=== PATIENT | male | born 1970 | race Caucasian/White ===

== ENCOUNTER 2018-01-15 13:55 | Inpatient (IN) | payer OTHER ==
[~2018-01-15] VITALS: Ht 177.8 cm; Wt 83.0 kg
[2018-01-15 14:01] VITALS: BP 150/92
--- NOTE | 2018-01-15 14:05 | NUR ---
Pt ambulated to bed 9. Accompanied by .
--- NOTE | 2018-01-15 14:11 | NUR ---
47 YO M BIB W/ C/O ETOH WITHDRAWAL. PT REPORTS HE HAS BEEN DRINKING 750ML OF VODKA A DAY ALONG WITH BEERS, FOR THE PAST 10-14 YEARS. PT REPORTS THE DRINKING HAS BECOME WORSE AND HE WANTS TO STOP. HIS LAST DRINK WAS YESTERDAY AFTERNOON, BUT HE IS CONCERNED ABOUT THE SYMPTOMS AND TREMORS THAT HE IS HAVING R/T ALCOHOL WITHDRAWL. PT DENIES HX OF SEIZURES, BUT SEIZURE PRECAUTIONS INITIATED AT THIS TIME. PT REPORT N/V/D/ AND INTERMITTENT PERIODS OF FEELING "FEVERISH". HE REPORTS DIZZINESS AND "LIGHT-HEADEDNESS". AAOX4. GCS 15. CMS INTACT. RR EVEN AND UNLABORED. LUNGS BILATERALLY CLEAR. PT PRESENTS WITH TREMORS OF THE HANDS AND ARMS, WITH SLOW MOVEMENTS. ER MD MENJIVAR NOTIFIED. PT NEEDS MET. SAFETY PRECAUTIONS IN PLACE. WILL CONTINUE TO MONITOR.
[2018-01-15] MEDS ORDERED: ONDANSETRON 4 MG/2 ML VIAL IVP ONE (14:55)
[2018-01-15] MEDS ORDERED: LORazepam 1 MG TAB PO ONE ×2 (14:55→18:00)
[2018-01-15] MEDS ORDERED: MULTIVITAMIN-12 10 ML, THIAMINE 100 MG, MAGNESIUM SULFATE 50% 2,000 MG, FOLIC ACID 5 MG... IV ONE ×5 (14:55)
[2018-01-15] MEDS ORDERED: NACL 0.9% 1,000 ML IV ONE (15:10)
--- NOTE | 2018-01-15 15:10 | NUR ---
PT RESTING COMFORTABLY IN [facility] AT THIS TIME. VSS. SAFETY AND SEIZURE PRECAUTIONS IN PLACE. WILL CONTINUE TO MONITOR.
[2018-01-15] MEDS ORDERED: MULTIVITAMIN-12 10 ML, THIAMINE 100 MG, MAGNESIUM SULFATE 50% 2,000 MG, FOLIC ACID 5 MG... IV SCH ×5 (15:17)
[2018-01-15 15:21] LABS: BASOPHILS % (AUTO) 0.1 % (0.0-2.0); HEMATOCRIT 46.1 % (36-52); HEMOGLOBIN 15.2 g/dL (12.0-18.0); LYMPHOCYTES # (AUTO) 0.2 K/uL (2.0-11.5); LYMPHOCYTES % (AUTO) 3.9 % (20.5-51.1); MEAN CORPUSCULAR HEMOGLOBIN 30 pg (27-31); MEAN CORPUSCULAR HGB CONC 33 g/dL (33-37); MEAN CORPUSCULAR VOLUME 89.3 fL (80-94); MONOCYTES # (AUTO) 0.4 K/uL (0.8-1.0); MONOCYTES % (AUTO) 8.4 % (1.7-9.3); NEUTROPHILS # (AUTO) 3.8 K/uL (1.8-7.7); NEUTROPHILS % (AUTO) 87.6 % (42.2-75.2); PLATELET COUNT (AUTO) 180 K/uL (140-450); RED BLOOD CELL COUNT(AUTO) 5.16 MIL/uL (4.20-6.10); RED CELL DISTRIBUTION WIDTH 17.7 % (11.6-13.7); WHITE BLOOD COUNT (AUTO) 4.4 K/uL (4.8-10.8)
--- NOTE | 2018-01-15 16:15 | NUR ---
Pt asleep in [facility] at this time. vss. safety and seizure precautions in place, rr even and unlabored, lungs clear. will continue to monitor.
[2018-01-15 17:05] LABS: APPEARANCE,URINE SL CLOUDY (CLEAR); BILIRUBIN,URINE 1+ (NEGATIVE); BLOOD, URINE NEGATIVE (NEGATIVE); COLOR,URINE ORANGE (YELLOW); LEUKOCYTE ESTERASE ,URINE NEGATIVE (NEGATIVE); NITRITE, URINE NEGATIVE (NEGATIVE); UGLUCOSE NEGATIVE (NEGATIVE)
[2018-01-15] MEDS: NACL 0.9% 1,000 ML IV ONE ×2 (17:08→17:41)
[2018-01-15 17:20] LABS: RBC,URINE 3-10 (FEW) /HPF (0-5)
[2018-01-15 17:21] LABS: WBC,URINE 0-5 (RARE) /HPF (0-5)
[2018-01-15] MEDS ORDERED: MAGNESIUM SULFATE 50% 1,000 MG in NACL 0.9% 50 ML IV ONE (17:25)
[2018-01-15 17:32] LABS: ANION GAP 20.3 (8-16); CARBON DIOXIDE 26.6 mmol/L (21-32); CREATININE 0.9 mg/dL (0.7-1.3); POTASSIUM 3.9 mmol/L (3.5-5.1)
--- NOTE | 2018-01-15 17:37 | NUR ---
pt finishing up banana bag at this time. Pt tremors have reduced significantly. pt states that he is feeling much better. vss. safety and seizure precautions in place. will continue to monitor.
[2018-01-15 17:38] LABS: ALBUMIN 4.8 g/dL (3.4-5.0); TOTAL BILIRUBIN 1.3 mg/dL (0.0-1.0)
[2018-01-15] MEDS ORDERED: MAG SULF 2000 MG/WATER PREMIX 50 ML IV ONE (17:55)
--- NOTE | 2018-01-15 18:17 | NUR ---
Pt resting on [facility] at this time. vss. safety precautions in place. will continue to monitor.
--- NOTE | 2018-01-15 19:28 | NUR ---
PT RESTING COMFORTABLY IN [facility] AT THIS TIME. VSS. RR EVEN AND UNLABORED. LUNGS BILATERALLY CLEAR. PT NEEDS MET. SAFETY PRECAUTIONS IN PLACE. WILL CONTINUE TO MONITOR.
--- NOTE | 2018-01-15 19:29 | NUR ---
transfer of care at this time, report given to RAQUEL Ewing
--- NOTE | 2018-01-15 19:35 | NUR ---
Pt report given to STEPHEN GARCÍA. Transfer of care at this time.
--- NOTE | 2018-01-15 19:45 | NUR ---
ADMITTED THIS 47 YEAR OLD MALE FROM ER PER BRIAN WITH CC OF ALCOHOL WITHDRAWAL, AMBULATED TO BED WITH STEADY GAIT, ASSESSMENT DONE, VITAL SIGNS STABLE, PT CALM AND COOPERATIVE, SLIGHT HAND TREMORS NOTED, ORIENTED TO ROOM AND CALL LIGHT, MAG-RIDER FROM ER INFUSING WELL, ON REGULAR DIET, WILL PROVIDE FOOD, CALL LIGHT WITHIN REACH.
[2018-01-15 20:00] VITALS: BP 145/77
[2018-01-15] MEDS ORDERED: ACETAMINOPHEN 325 MG TAB PO PRN ×2 (21:10→21:50)
[2018-01-15] MEDS: LORazepam 2 MG/ML VIAL IVP PRN (21:38)
--- NOTE | 2018-01-15 21:40 | NUR ---
NOTED RESTLESS, PT STATED ANXIOUS AT THIS TIME, HAND TREMORS NOTED, PAGED DR Corinne TURCIOS, WITH NEW ORDER, MEDICATED WITH ATIVAN IVP PRN, MONITORED CLOSELY, AT BEDSIDE.
[2018-01-15] MEDS ORDERED: HYDROcodone/APAP 5/325 MG 1 TAB TAB PO PRN (21:50)
[2018-01-15] MEDS ORDERED: ONDANSETRON 4 MG/2 ML VIAL IVP PRN (21:50)
[2018-01-15] MEDS: DEXT 5% /NACL 0.9% 1,000 ML IV SCH (23:58)
[2018-01-16] VITALS: BP 136/87
--- NOTE | 2018-01-16 | NUR ---
PT STILL AWAKE USING HIS CELLPHONE, STATED HASN'T SLEEP SINCE WEDNESDAY, REQUESTING FOR SLEEPING PILL, WILL PAGED DR Corinne TURCIOS, VITAL SIGNS STABLE, IVF OF D5NS AT 100ML/H STARTED, CONTINUE TO MONITOR CLOSELY.
[2018-01-16] MEDS ORDERED: traZODone 50 MG TAB PO SCH ×2 (01:00→21:00)
[2018-01-16] MEDS: LORazepam 2 MG/ML VIAL IVP PRN ×4 (01:27→23:51)
--- NOTE | 2018-01-16 01:35 | NUR ---
PT STILL AWAKE, STATED FEELING ANXIOUS, HAND TREMORS NOTED, MEDICATED WITH TRAZODONE FOR SLEEP AND ATIVAN IVP FOR RESTLESSNESS, IVF INFUSING WELL, ENCOURAGE TO GET SOME SLEEP, MONITORED CLOSELY.
[2018-01-16] MEDS: LORazepam 1 MG TAB PO SCH ×3 (04:20→20:33)
--- NOTE | 2018-01-16 04:20 | NUR ---
PT SLEEPING, EASILY AROUSABLE BUT DISORIENTED, REORIENT PT TO TIME AND PLACE, PT CALMED DOWN, VITAL SIGNS STABLE, AMBULATED TO BR WITH STEADY GAIT AND VOIDED FREELY, DUE PO ATIVAN ADMINISTERED, MONITORED CLOSELY.
[2018-01-16 04:30] VITALS: BP 130/82
[2018-01-16 05:43] LABS: BASOPHILS % (AUTO) 0.3 % (0.0-2.0); EOSINOPHILS % (AUTO) 0.9 % (0.0-4.0); HEMATOCRIT 40.8 % (36-52); HEMOGLOBIN 13.5 g/dL (12.0-18.0); LYMPHOCYTES # (AUTO) 0.6 K/uL (2.0-11.5); LYMPHOCYTES % (AUTO) 18.2 % (20.5-51.1); MEAN CORPUSCULAR HEMOGLOBIN 30 pg (27-31); MEAN CORPUSCULAR HGB CONC 33 g/dL (33-37); MEAN CORPUSCULAR VOLUME 90.3 fL (80-94); MONOCYTES # (AUTO) 0.6 K/uL (0.8-1.0); MONOCYTES % (AUTO) 17.1 % (1.7-9.3); NEUTROPHILS # (AUTO) 2.1 K/uL (1.8-7.7); NEUTROPHILS % (AUTO) 63.5 % (42.2-75.2); PLATELET COUNT (AUTO) 123 K/uL (140-450); RED BLOOD CELL COUNT(AUTO) 4.51 MIL/uL (4.20-6.10); RED CELL DISTRIBUTION WIDTH 17.2 % (11.6-13.7); WHITE BLOOD COUNT (AUTO) 3.3 K/uL (4.8-10.8)
[2018-01-16 06:07] LABS: ALBUMIN 3.4 g/dL (3.4-5.0); ANION GAP 9.4 (8-16); CARBON DIOXIDE 30.3 mmol/L (21-32); CREATININE 0.9 mg/dL (0.7-1.3); POTASSIUM 3.7 mmol/L (3.5-5.1); TOTAL BILIRUBIN 1.2 mg/dL (0.0-1.0)
--- NOTE | 2018-01-16 07:15 | NUR ---
PT SLEEPING, NO SIGNS OF DISTRESS, REPORT GIVEN TO RN RINKU FOR CONTINUITY OF CARE.
--- NOTE | 2018-01-16 07:17 | NUR ---
REPORT RECEIVED FROM FLOOR FINISHER NURSE, PT SLEEPING QUIETLY IN NAD, RESP EVEN UNLABORED ON RA, SKIN WARM DRY COLOR WNL, PT AROUSES TO VOICE, DENIES PAIN OR DISCOMFORT, PLAN OF CARE REVIEWED, NO IMMEDIATE NEEDS IDENTIFIED, ALL SAFETY MEASURES IN PLACE, WILL CONTINUE TO MONITOR.
[2018-01-16] MEDS: DEXT 5% /NACL 0.9% 1,000 ML IV SCH ×2 (07:50→16:29)
[2018-01-16 08:00] VITALS: BP 136/87
[2018-01-16] MEDS ORDERED: MULTIVITAMIN 1 TAB PO SCH (09:00)
[2018-01-16] MEDS ORDERED: THIAMINE 100 MG TAB PO SCH (09:00)
[2018-01-16] MEDS ORDERED: FOLIC ACID 1 MG TAB PO SCH (09:00)
--- NOTE | 2018-01-16 09:31 | NUR ---
PT C/O FEELING ANXIOUS "LIKE HEART POPPING OUT OF HIS CHEST" WITH SHAKY HANDS, PRN ATIVAN GIVEN AT THIS TIME, PT DENIES CHEST PAIN, DENIES SOB, SPEAKS CLEARLY IN NAD, WILL CONTINUE TO MONITOR.
--- NOTE | 2018-01-16 10:27 | NUR ---
PT RESTING QUIETLY IN NAD, RESP EVEN UNLABORED, PT STATES ANXIETY HAS SUBSIDED, PT DENIES ANY IMMEDIATE NEEDS, WILL CONTINUE TO MONITOR.
[2018-01-16 12:00] VITALS: BP 123/78
--- NOTE | 2018-01-16 12:41 | NUR ---
SCHEDULED PO ATIVAN GIVEN, PT RESTING QUIETLY TALKING WITH AT BEDSIDE, DENIES ANY IMMEDIATE NEEDS, WILL CONTINUE TO MONITOR.
--- NOTE | 2018-01-16 14:08 | NUR ---
PT SLEEPING QUIETLY IN NAD, RESP EVEN UNLABORED, SKIN WARM DRY COLOR WNL, PT REMAINS ON [employer], WILL CONTINUE TO MONITOR.
[2018-01-16 16:00] VITALS: BP 110/63
--- NOTE | 2018-01-16 16:00 | NUR ---
PT AWAKE ALERT, STATES FEELING ANXIOUS AGAIN, WANTS ANOTHER DOES OF ATIVAN, WILL MEDICATE PER ORDER, PT ASKS WHEN THE DOCTOR WILL COME IN , PT WANTS TO LEAVE TODAY BECAUSE HE WANTS TO GO TO [place] TODAY AND WORK TOMORROW, PT ENCOURAGED TO STAY FOR FURTHER EVALUATION, SPONGE BATH SUPPLIES PROVIDED REQUESTED, IVF INFUSING WELL, WILL CONTINUE TO MONITOR.
--- NOTE | 2018-01-16 17:29 | NUR ---
DR Corinne TURCIOS PAGED AND CALLED BACK, HE WILL COME SEE PATIENT LATER TONIGHT, PT MADE AWARE AND VERBALIZED UNDERSTANDING, PT UP TO BATHROOM WITH STEADY GAIT, DENIES N/V, DENIES PAIN, WILL CONTINUE TO MONITOR
--- NOTE | 2018-01-16 18:10 | NUR ---
PT SPONGE BATHED AT SINK, WALKS AND STANDS WITH STEADY GAIT, NOW SITTING UP EATING DINNER.
--- NOTE | 2018-01-16 19:20 | NUR ---
REPORT GIVEN TO GLUER NURSE, PT IN STABLE CONDITION.
--- NOTE | 2018-01-16 19:25 | NUR ---
RECEIVED PT AWAKE LYING ON BED, AAOX4, CALM AND COOPERATIVE, VITAL SIGNS STABLE, IVF INFUSING WELL, AWAITING DR Corinne TURCIOS, PT'S WANTS TO GO HOME AND REQUESTING PRESCRIPTION FOR ATIVAN, WILL INFORM DR TURCIOS WHEN HE COMES IN, SAFETY MEASURES IN PLACE, CONTINUE TO MONITOR FOR SIGNS OF ALCOHOL WITHDRAWAL, CALL LIGHT WITHIN REACH.
[2018-01-16 20:00] VITALS: BP 143/93
--- NOTE | 2018-01-16 21:20 | NUR ---
PT AMBULATED TO NURSES STATION, REQUESTING FOR COOKIES AND MILK, PROVIDED WITH SNACK, IN THE ROOM, ALL NEEDS ATTENDED.
--- NOTE | 2018-01-16 22:10 | NUR ---
DR TURCIOS HERE, TALK TO PT, WITH NEW ORDERS AND PRESCRIPTIONS, DISCHARGE ORDER FOR TOMORROW DISH WASHER, PT AMENABLE WITH DISCHARGE TOMORROW MORNING.
[2018-01-16] MEDS ORDERED: TRAZ-286 PO (22:22)
[2018-01-16] MEDS ORDERED: FOLI1TAB90 PO (22:22)
[2018-01-16] MEDS ORDERED: MULT-405 PO (22:22)
[2018-01-16] MEDS ORDERED: THIA100T31 PO (22:22)
[2018-01-16] MEDS ORDERED: LORA-476 PO (22:22)
[2018-01-17] VITALS: BP 152/70
--- NOTE | 2018-01-17 01:30 | NUR ---
PT SLEEPING, NO SIGNS OF DISTRESS, IVF INFUSING WELL, MONITORED CLOSELY.
[2018-01-17] MEDS: DEXT 5% /NACL 0.9% 1,000 ML IV SCH (02:19)
[2018-01-17 04:35] VITALS: BP 149/96
[2018-01-17] MEDS: LORazepam 1 MG TAB PO SCH (04:39)
--- NOTE | 2018-01-17 04:40 | NUR ---
PT WALKED TO NURSES STATION REQUESTING FOR HIS ATIVAN DUE TO ANXIETY, VITAL SIGNS TAKEN, BP SLIGHTLY ELEVATED, ASYMPTOMATIC, DENIES PAIN, DUE ATIVAN PO GIVEN, I TOLD HIM HE CAN BE DISCHARGE AFTER AM BLOOD DRAW, PT STILL UNDECIDED WHAT TIME IS HE LEAVING, PER PT CAN'T PICK HIM UP BECAUSE SHE NEEDS TO BE AT WORK BY 0630, PER PT HE WILL WALK HOME SINCE IT'S JUST A COUPLE OF MILES FROM HERE, I INFORM HIM THAT I HAVE A BUS PASS FOR HIM.
[2018-01-17 05:27] VITALS: BP 149/96
--- NOTE | 2018-01-17 06:10 | NUR ---
PT SLEEPING, EASILY AROUSABLE, PT MADE AWARE THAT DISCHARGE PAPER IS READY, INSTRUCTED FOLLOW APPOINTMENT WITH DR Corinne TURCIOS, PHYSICIAN'S ADDRESS AND PHONE NUMBER PROVIDED, PT WILL WAIT AFTER BREAKFAST, WILL ENDORSE TO AM SHIFT.
--- NOTE | 2018-01-17 06:36 | NUR ---
SEEN PT AWAKE CHANGING TO HIS OWN CLOTHES, ASK IF HE WANTS TO GO NOW, STATED "NOT YET, IM WAITING FOR BREAKFAST AND WATCH THE [employer] GAME ON TV AT 0700", DISCHARGE INSTRUCTIONS PROVIDED, VERBALIZED UNDERSTANDING, DISCHARGE PAPERS SIGNED, PT WANTS IVF STOPPED AND TOOK OFF TELE MONITOR, RISK AND BENEFITS EXPLAINED, PT STATED "IM ELLIOT", WILL ENDORSE TO AM NURSE.
[2018-01-17 06:48] LABS: BASOPHILS % (AUTO) 0.3 % (0.0-2.0); EOSINOPHILS % (AUTO) 1.3 % (0.0-4.0); HEMATOCRIT 39.5 % (36-52); HEMOGLOBIN 13.2 g/dL (12.0-18.0); LYMPHOCYTES # (AUTO) 0.8 K/uL (2.0-11.5); LYMPHOCYTES % (AUTO) 24.9 % (20.5-51.1); MEAN CORPUSCULAR HEMOGLOBIN 30 pg (27-31); MEAN CORPUSCULAR HGB CONC 33 g/dL (33-37); MEAN CORPUSCULAR VOLUME 89.1 fL (80-94); MONOCYTES # (AUTO) 0.3 K/uL (0.8-1.0); MONOCYTES % (AUTO) 9.7 % (1.7-9.3); NEUTROPHILS % (AUTO) 63.8 % (42.2-75.2); PLATELET COUNT (AUTO) 124 K/uL (140-450); RED BLOOD CELL COUNT(AUTO) 4.43 MIL/uL (4.20-6.10); RED CELL DISTRIBUTION WIDTH 17.1 % (11.6-13.7); WHITE BLOOD COUNT (AUTO) 3.1 K/uL (4.8-10.8)
--- NOTE | 2018-01-17 07:00 | NUR ---
PT AWAKE SITTING ON BED WATCHING TV, ENDORSE TO RN SANDRA FOR CONTINUITY OF CARE.
--- NOTE | 2018-01-17 07:01 | NUR ---
RECEIVED PT REPORT FROM RESIDENTIAL GLAZIER NURSE, MICHELLE4, IV NOTED TO THE LEFT FA, PATENT AND INTACT, ASYMPTOMATIC. CALL LIGHT WITHIN REACH, WILL CONTINUE TO MONITOR.
[2018-01-17 07:26] LABS: ALBUMIN 3.5 g/dL (3.4-5.0); ANION GAP 12.6 (8-16); CARBON DIOXIDE 28.1 mmol/L (21-32); CREATININE 0.8 mg/dL (0.7-1.3); POTASSIUM 3.7 mmol/L (3.5-5.1); TOTAL BILIRUBIN 1.2 mg/dL (0.0-1.0)
--- NOTE | 2018-01-17 07:40 | NUR ---
VITALS TAKEN, PT HAS REMOVED HIS IV HIMSELF. NO BLEEDING IS SEEN AT IV SITE. PT IS WATCHING TV, NO DISTRESS.
[2018-01-17 08:00] VITALS: BP 134/85
--- NOTE | 2018-01-17 08:55 | NUR ---
PT IS IN STABLE CONDITION, NO S/S OF DISTRESS. WRIST BAND REMOVED. PT LEFT WITH ALL HIS BELONGINGS. WALKED PT TO LOBBY.
--- NOTE | 2018-01-17 14:29 | NUR ---
CM NOTE PER ENRIQUE Silva OF [facility] MED MANAGEMENT TRIAGE DEPT # [phone] [facility], THERE IS NO ASSIGNED BUSINESS RISK CONSULTANT AT THIS TIME BUT REVIEWS SHOULD BE SENT TO [phone]. REVIEW FAXED TO [facility] [phone] # [phone] [facility] AND TO [facility] [phone] ROMANA GOODSON [phone].
== END 2018-01-17 08:55 | disposition home or self-care (01) | DRG 897 ==
LOC: MED 13:55 → MTU 18:42
PROVIDERS: ADMIT Preventive Medicine Preventive Medicine/Occupational Environmental Medicine; ATTEND Preventive Medicine Preventive Medicine/Occupational Environmental Medicine
DX: F10.239 Alcohol dependence with withdrawal, unspecified (principal); R11.10 Vomiting, unspecified; R73.9 Hyperglycemia, unspecified; D72.819 Decreased white blood cell count, unspecified; R03.0 Elevated blood-pressure reading, without diagnosis of hypertension
CPT/HCPCS: 36415; 80053; 81001; 82150; 83690; 83735; 84484; 85025; 87081; 93005; 96365; 96366; 96368; 96375; 99285; A9153; G0482; J2060; J2405; J3411; J3475; J3490; J7030; J7042

== ENCOUNTER 2018-04-26 09:46 | Emergency (ER) | payer OTHER ==
[~2018-04-26] VITALS: Ht 177.8 cm; Wt 91.6 kg
[~2018-04-26 09:46] MED LIST: FOLI1TAB90 PO; LORA-476 PO; MULT-405 PO; THIA-34 PO; TRAZ-370 PO
[2018-04-26 10:13] VITALS: BP 138/106
--- NOTE | 2018-04-26 10:21 | NUR ---
PT AMBULATES TO BED 4
--- NOTE | 2018-04-26 10:25 | NUR ---
48/M bib with c/o SHAKING, VOMITTING , generalized weakness/pain S/P ETOH withdrawal. PT STATED DRINKING ALCOHOL EEVERY DAY. Last drink 24oz of beer this am Patient denies any auditory or visual hallucinations. Patient is aox4 to person, place, situation, and time. Patient is calm and cooperative and with steady gait. hx--alcoholism. PATIENT POSITIONED FOR COMFORT; HOB ELEVATED; BEDRAILS UP X2; BED DOWN. ER MD MADE AWARE OF PT STATUS.
--- NOTE | 2018-04-26 11:36 | NUR ---
Patient being evaluated by physician at bedside.
[2018-04-26] MEDS ORDERED: LORazepam 1 MG TAB PO ONE (11:55)
[2018-04-26 12:18] VITALS: BP 123/99
--- NOTE | 2018-04-26 12:18 | NUR ---
Patient discharged with v/s stable. Written and verbal after care instructions given and explained. Patient alert, oriented and verbalized understanding of instructions. Ambulatory with steady gait. All questions addressed prior to discharge. ID band removed. Patient advised to follow up with PMD. Rx of ZOFRAN & CHLORDIAZEPOZIDE given. Patient educated on indication of medication including possible reaction and side effects. Opportunity to ask questions provided and answered.
== END 2018-04-26 12:18 | disposition home or self-care (01) ==
LOC: MED 09:46
DX: E00.2 Congenital iodine-deficiency syndrome, mixed type (principal); R06.00 Dyspnea, unspecified; R25.1 Tremor, unspecified; Z79.899 Other long term (current) drug therapy
CPT/HCPCS: 81002; 99283

== ENCOUNTER 2018-05-28 13:39 | Emergency (ER) | payer OTHER ==
[~2018-05-28] VITALS: Ht 177.8 cm; Wt 70.3 kg
--- NOTE | 2018-05-28 13:39 | NUR ---
PT KRAIG PIKE, CURRENTLY AWAITING BED
--- NOTE | 2018-05-28 13:50 | NUR ---
PT TAKEN TO BED 11 BY [facility] CREW
[2018-05-28 13:56] VITALS: BP 123/84
--- NOTE | 2018-05-28 14:24 | NUR ---
PER PATIENT , BEEN HOMELESS X2 WKS. A FRIEND SAW HIM ON THE STREET AND TOOK HIM HOME AND CALLED 911. PATIENT VERY UNSTEADY GAIT.ANSWERING QUESTIONS APPROPPRIATELY. RT. ARM CUTS FROM THE BUSHES PER PATIENT/ OLD ABRASION TO LT. FOREHEAD. DENIES HX,DENIES MEDS. SEEN IN [facility] YESTERDAY. PT WAS GIVEN URINAL FOR URINE SAMPLE. PT RESTING IN BED.
[2018-05-28] MEDS ORDERED: MULTIVITAMIN-12 10 ML, THIAMINE 100 MG, MAGNESIUM SULFATE 50% 2,000 MG, FOLIC ACID 5 MG... IV ONE ×5 (15:06)
[2018-05-28] MEDS ORDERED: NACL 0.9% 1,000 ML IV ONE (15:06)
--- NOTE | 2018-05-28 15:22 | NUR ---
XRAY AT BEDSIDE
[2018-05-28 15:26] LABS: APPEARANCE,URINE CLEAR (CLEAR); BILIRUBIN,URINE NEGATIVE (NEGATIVE); BLOOD, URINE NEGATIVE (NEGATIVE); COLOR,URINE YELLOW (YELLOW); LEUKOCYTE ESTERASE ,URINE NEGATIVE (NEGATIVE); NITRITE, URINE NEGATIVE (NEGATIVE); UGLUCOSE NEGATIVE (NEGATIVE)
[2018-05-28 15:32] LABS: BARBITURATE, URINE NEG. ng/ml (NEG <=200); BENZODIAZEPINE, URINE POS. ng/mL (NEG <=200); CANNABINOID, URINE NEG. ng/mL (NEG <=50); COCAINE, URINE NEG. ng/mL (NEG <=300); PHENCYCLIDINE SCREEN,URINE NEG. ng/mL (NEG <=25)
[2018-05-28 15:34] LABS: BASOPHILS % (AUTO) 0.8 % (0.0-2.0); EOSINOPHILS % (AUTO) 0.7 % (0.0-4.0); HEMATOCRIT 37.6 % (36-52); HEMOGLOBIN 12.3 g/dL (12.0-18.0); LYMPHOCYTES # (AUTO) 0.9 K/uL (2.0-11.5); MEAN CORPUSCULAR HEMOGLOBIN 30 pg (27-31); MEAN CORPUSCULAR HGB CONC 33 g/dL (33-37); MEAN CORPUSCULAR VOLUME 92.8 fL (80-94); MONOCYTES # (AUTO) 0.4 K/uL (0.8-1.0); MONOCYTES % (AUTO) 13.6 % (1.7-9.3); NEUTROPHILS # (AUTO) 1.5 K/uL (1.8-7.7); NEUTROPHILS % (AUTO) 51.9 % (42.2-75.2); PLATELET COUNT (AUTO) 317 K/uL (140-450); RED BLOOD CELL COUNT(AUTO) 4.05 MIL/uL (4.20-6.10); RED CELL DISTRIBUTION WIDTH 17.8 % (11.6-13.7); WHITE BLOOD COUNT (AUTO) 2.8 K/uL (4.8-10.8)
[2018-05-28 15:44] LABS: ANION GAP 8.4 (8-16); CREATININE 0.8 mg/dL (0.7-1.3); POTASSIUM 3.4 mmol/L (3.5-5.1)
--- NOTE | 2018-05-28 15:45 | NUR ---
PT RETURNED FROM CT
[2018-05-28 15:46] LABS: OPIATE, URINE NEG. ng/mL (NEG <=2000)
[2018-05-28 15:52] LABS: ALBUMIN 3.3 g/dL (3.4-5.0); TOTAL BILIRUBIN 0.3 mg/dL (0.0-1.0)
--- NOTE | 2018-05-28 19:10 | NUR ---
Patient appears to be resting comfortably in bed. Vital Signs within normal limits. Respirations even and unlabored.
--- NOTE | 2018-05-28 21:30 | NUR ---
PT AWAKE AND REQUESTING DISCHARGE. ABLE TO WALK TO RESTROOM WITH STEADY GAIT. Patient presented to facility under the influence of Alcohol/Drugs. Patient is currently ambulatory with steady gait, able to walk unassisted. Positive gag reflex. Alert and oriented. Is not driving self for discharge out of facility.
[2018-05-28 22:00] VITALS: BP 119/79
--- NOTE | 2018-05-28 22:00 | NUR ---
Patient discharged with v/s stable. Written and verbal after care instructions given and explained. Patient verbalized understanding. Ambulatory with steady gait. All questions addressed prior to discharge. Advised to follow up with PMD.
== END 2018-05-28 22:00 | disposition home or self-care (01) ==
LOC: MED 13:39
DX: F10.229 Alcohol dependence with intoxication, unspecified (principal); Y90.8 Blood alcohol level of 240 mg/100 ml or more; Z79.899 Other long term (current) drug therapy
CPT/HCPCS: 36415; 70450; 71045; 80053; 80305; 81003; 82948; 84484; 85025; 93005; 96365; 96366; 99285; A9153; G0482; J3411; J3475; J3490; J7030; Q0092